=== PATIENT | female | born 2000 | race Caucasian/White ===

== ENCOUNTER → 2022-10-03 12:46 | Outpatient (BNVA) | payer OTHER, SELFPAY | PROVIDERS: Visit Provider Physician Assistant Surgical ==

== ENCOUNTER 2022-11-04 13:08 | Outpatient (AMB) | payer OTHER, SELFPAY ==
--- NOTE | 2022-11-04 13:09 | MHC.OFFVISWM ---
Intake VS Expanded 11/04/22 13:16 Height 5 ft 3.5 in Weight 295 lb 6.4 oz BMI 51.5 BP 134/65 Blood Pressure Location Rt brachial Blood Pressure Position Sitting Pulse 84 Pulse Source Pulse Oximeter Temp 97.7 F Temperature Source Tympanic Pulse Oximetry 96 Oxygen Delivery Method Room Air Body Fat 149.2 Body Fat Percentage 50.6 Free Fat Mass 146.0 Muscle Mass 138.6 Visceral Mass 16.0 Water Mass 105.0 BMR 2,158 Intake Visit Reasons: (OV) [employer]MENT[employer]ICER SWL BMI 51.0 Allergies No Known Allergies Allergy (Verified 10/03/22 13:10) Medication List - Last Reconciled 11/04/22 by Aniyah Mueller PA-C albuterol sulfate 90 mcg/actuation 2 puffs inhalation Q6H PRN buspirone 5 mg PO BID cyclobenzaprine 5 mg PO BEDTIME hydroxyzine HCl 25 mg PO BID PRN levonorgestrel (Mirena) intrauterine naproxen 500 mg PO BID HPI HPI Comments History of Present Illness Details This is a 22 year old woman who is here to start SWL program with SWL classes. Her goal is to lose about 100 lbs. She reports first being concerned about her weight last year. She has tried multiple methods of weight loss including Keto without permanent results. She lives with her boyfriend. She works - variable hours adn days always day shift. Patient c/o left sided chest pain that radiates down her left arm ocassionally. She has not discussed this with any medical providers yet. She wakes at: 5:30 am, bed at 11 pm - may not fall asleep until 1 am. Patient states she goes without eating for days and then eats a lot for a few days. Has family history of eating disorders, she has never received help for this in past. Breakfast: 8am - medium coffee - 6 cream, 6 sugar and caramel syrup. Will coffee to cheer herself us Lunch:May have eggs or skip meals until 5 pm or may not eat at all Dinner: may have eggs or a sandwich or chicken. water or whole milk After dinner: nothing Other snacks: none, but yesterday had nessa PB cups before dinner Liquids: rarely, no fruit juice. Alcohol intake: a few times per year, tobacco: stopped 2 weeks ago, marijuana:2-3 times per week. Exercise: none, no access to gym equipment Last mammogram: never Last pap smear: needs to make an appt control method: IUD BETZY:2 ESS:5 GERD:8 QOL:94 PFSH Surgical History Hx of eye surgery Hx of hemorrhoidectomy Hx of wisdom tooth extraction Family History Mother Cervix cancer Colon cancer Social History (Updated 10/03/22 @ 13:17 by Aleisha Al LPN) Alcohol intake: current Alcohol intake frequency: holidays/special occasions only Tobacco use type: Cigarette Years Smoked: 6 YEARS Substance Use Type: Marijuana Physical Exam Const General: cooperative, no acute distress and well developed Nutritional Appearance: obese Orientation/consciousness: patient oriented x3 HEENT Head: Yes normal to inspection Neck Neck: Yes normal visual inspection Thyroid: Thyroid normal Resp Effort & Inspection: normal respiratory effort Auscultation: clear to auscultation bilaterally Cardio Rate: regular rate Rhythm: regular rhythm Heart sounds: S1 normal heart sound present, S2 normal heart sound present and no murmurs GI Inspection: No distended and Yes obesity Palpation (GI): Soft to palpation, nontender and no guarding Skin General skin exam: no rashes or lesions noted and other (warm and dry) Wounds: no wounds Hair: normal Neuro General: patient oriented x3 Extrem General: Yes no pedal edema and Yes no calf tenderness Psych Attitude: cooperative Thought process: Normal thought process present Thought content: Normal thought content present Insight: Good insight present (Psych) Judgement: Good judgement present (Psych) Assessment & Plan Assessment & Plan (1) Morbid obesity: Code(s): E66.01 - Morbid (severe) obesity due to excess calories Plan: This is a 22 yo woman with morbid obesity and very disordered eating. She has never received help for this. I recommended that she speak to her PCP about her left sided chest pain this week and that she ask for a referral for a therapist who specializes in eating disorders. I told her she can return to our department once she has her eating behaviors in better control. Sleep 7-8 hours /night from 111pm - 6am 8am - 30 gram shake or 2 eggs with vegetables 12 pm- - 4 oz protein and 6 oz veg 4pm- 6 oz protein and 6 oz veg 8pm- another shake or icelandic yogurt Exercise - treadmill at least 4 d/wk - fro 300 calories burned. speed 2.8, incline 2-6. Patient is morbidly obese and is not considered stable at this time.?I spent a total of 60 minutes reviewing/updating records, examining the patient and counseling the patient on weight management as detailed above. (2) Pre-op evaluation: Code(s): Z01.818 - Encounter for other preprocedural examination (3) PTSD (post-traumatic stress disorder): Code(s): F43.10 - Post-traumatic stress disorder, unspecified (4) ADD (attention deficit disorder): Code(s): F98.8 - Other specified behavioral and emotional disorders with onset usually occurring in childhood and adolescence (5) Cognitive developmental delay: Code(s): F81.9 - Developmental disorder of scholastic skills, unspecified (6) Asthma: Code(s): J45.909 - Unspecified asthma, uncomplicated Coding Level of Care Code New Pt Level 5 (09764) Diagnoses Morbid obesity E66.01 Pre-op evaluation Z01.818 PTSD (post-traumatic stress disorder) F43.10 ADD (attention deficit disorder) F98.8 Cognitive developmental delay F81.9 Asthma J45.909
[2022-11-04 13:16] VITALS: BP 134/65; PULSE 84; TEMP 36.5; O2SAT 96; BMI 51.5
== END 2022-11-04 13:58 | disposition home or self-care (01) ==
PROVIDERS: Visit Provider Physician Assistant
DX: E66.01 Morbid (severe) obesity due to excess calories (principal); Z68.43 Body mass index [BMI] 50.0-59.9, adult
CPT/HCPCS: 99205

== ENCOUNTER → 2022-11-04 13:08 | Outpatient (BNVA) | payer OTHER, SELFPAY | PROVIDERS: Visit Provider Physician Assistant | DX: Z01.818 Encounter for other preprocedural examination (principal); E66.01 Morbid (severe) obesity due to excess calories; R07.89 Other chest pain; J45.909 Unspecified asthma, uncomplicated; F98.8 Other specified behavioral and emotional disorders with onset usually occurring in childhood and adolescence; F43.10 Post-traumatic stress disorder, unspecified; F81.9 Developmental disorder of scholastic skills, unspecified; F17.210 Nicotine dependence, cigarettes, uncomplicated; Z68.43 Body mass index [BMI] 50.0-59.9, adult | CPT/HCPCS: 99202 ==